=== PATIENT | female | born 1970 | race Two or more races ===

== ENCOUNTER 2016-07-22 18:16 | Day surgery (SDC) | payer MEDICAID ==
[2016-07-22] MEDS ORDERED: SODIUM CHLORIDE 0.9% FLUSH 10 ML ONE (18:39)
[2016-07-22] MEDS ORDERED: IV START KIT ONE (18:39)
--- NOTE | 2016-07-22 19:18 | HP ---
LEIGH ANN KAPLAN : 1970 CHIEF COMPLAINT: This is a 46-year-old female admitted with a history of a missed for a dilation and curettage possible suction dilation and curettage. She will be given misoprostol 400 mg overnight in preparation for the surgery. OB HISTORY: 2, para 1, 0/0/1. She had one vaginal delivery in 2003. 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 PAST MEDICAL HISTORY: 1. Positive for diabetes. She takes metformin 1000 mg twice daily. She has had diabetes for five years. 2. She has elevated cholesterol. 3. Helicobacter pylori. ALLERGIES: PENICILLIN. SOCIAL HISTORY: Nonsmoker, nondrinker. PAST SURGICAL HISTORY: Cholecystectomy. FAMILY HISTORY: Is negative. PHYSICAL EXAM: GENERAL: This is a healthy female in no acute distress. HEENT: Normal. NECK: Supple. Thyroid not palpable. BREASTS: Soft, no masses. HEART: Regular sinus rhythm, no murmurs. LUNGS: Clear. ABDOMEN: Benign. PELVIC: External genitalia healthy. Vagina, slight brown discharge. Cervix is closed and patulous. Uterus is 12 week size and anteverted. The adnexa are negative. IMAGING: She underwent an ultrasound at [facility] and at that time imaging showed an intrauterine in a transverse position. Placenta location anterior. Amniotic fluid volume normal and the crown-rump length was smaller than the expected due to dating and there was absent cardiac activity noted with a missed identified. The fetus was measuring 11 weeks gestation. ASSESSMENT: Missed . PLAN: Misoprostol insertion overnight and then dilation and curettage, possible suction dilation and curettage. Risks, reasons, complications, living will and alternatives discussed. All in [place] and all questions were answered.
[2016-07-22] MEDS ORDERED: ACETAMINOPHEN 325 MG TABLET PO PRN (20:23)
[2016-07-22] MEDS ORDERED: BLISTEX LIPSTICK 1 EACH TP PRN (20:23)
[2016-07-22] MEDS ORDERED: MENTHOL/CETYLPYRD 1 EACH LOZENGE PO PRN (20:23)
[2016-07-22] MEDS ORDERED: CEFAZOLIN SODIUM 2 GRAM DUPLEX 2 G in Premix (D5W) 50 ml 1 EACH IV PRN (20:27)
[2016-07-22] MEDS ORDERED: MISOPROSTOL 200 MCG TABLET VG ONE (20:28)
[2016-07-22 20:46] VITALS: BMI 37.0
[2016-07-22 20:52] LABS: HEMATOCRIT 31.5 % (37.0-47.0); HEMOGLOBIN 10.9 gm/l (12.0-16.0); MEAN CELL VOLUME 81.6 fl (81.0-99.0); MEAN CORPUSCULAR HEMOGLOBIN 28.2 pg (27.0-31.0); MEAN CORPUSCULAR HGB CONC 34.6 g/dl (33.0-37.0); RED CELL DISTRIBUTION WIDTH 13.2 % (11.5-14.5)
[2016-07-22] MEDS ORDERED: PUMP TUBING ONE (21:02)
[2016-07-22] MEDS: LACTATED RINGERS 1,000 ML IV SCH (21:06)
[2016-07-22 21:14] LABS: ALB/GLOB RATIO 1.2 (>1.0); ALBUMIN 3.5 gm/dL (3.5-5.7); CALCIUM 8.7 mg/dL (8.6-10.3)
[2016-07-23] MEDS ORDERED: CODEINE/APAP 30/300 MG 1 EACH TABLET PO PRN ×2 (00:44→01:00)
[2016-07-23] MEDS: LACTATED RINGERS 1,000 ML IV SCH (05:22)
[2016-07-23] MEDS ORDERED: FENTANYL 100 MCG/2 ML VIAL ONE (08:34)
[2016-07-23] MEDS ORDERED: MIDAZOLAM HCL 1 MG/ML 2ML VIAL ONE (08:34)
[2016-07-23] MEDS ORDERED: LACTATED RINGERS 1,000 ML ONE (08:36)
[2016-07-23] MEDS ORDERED: DEXAMETHASONE SOD PHOS 4 MG/1 ML VIAL ONE (09:05)
[2016-07-23] MEDS ORDERED: PROPOFOL 20 ML IV ONE (09:05)
[2016-07-23] MEDS ORDERED: ONDANSETRON 4 MG/2ML 2 ML VIAL ONE (09:05)
[2016-07-23] MEDS ORDERED: DIPHENHYDRAMINE HCL 50 MG/1 ML VIAL ONE (09:05)
[2016-07-23] MEDS ORDERED: LIDOCAINE 2% (PRES FREE) 5 ML VIAL ONE (09:05)
[2016-07-23] MEDS ORDERED: NALOXONE HCL 0.4 MG/ML VIAL IV PRN (09:17)
[2016-07-23] MEDS ORDERED: ATROPINE SULFATE 0.4 MG/1 ML VIAL IV PRN (09:17)
[2016-07-23] MEDS ORDERED: PROMETHAZINE HCL 25 MG/ML VIAL IM PRN (09:17)
[2016-07-23] MEDS ORDERED: FENTANYL 100 MCG/2 ML VIAL IV PRN (09:17)
[2016-07-23] MEDS ORDERED: ONDANSETRON 4 MG/2ML 2 ML VIAL IV PRN (09:17)
[2016-07-23] MEDS ORDERED: HYDROMORPHONE HCL 1 MG/ML SYRINGE IV PRN (09:17)
[2016-07-23] MEDS ORDERED: OXYTOCIN 10 UNITS/ML VIAL ONE (09:23)
[2016-07-23] MEDS ORDERED: LACTATED RINGERS 1,000 ML IV SCH (09:30)
--- NOTE | 2016-07-23 09:46 | PCMBPN ---
Brief Post Op Note: Date of Procedure: 07/23/16 Start Time: Preoperative Diagnosis: 1. missed Postoperative Diagnosis: 1. Same Procedure: dilatation and curettage Surgeon: Marino Springer Assist: Anesthesia: general, mr lagos Findings: external genitalia healthy, cystocele, cervix patulous and 1 cm dilated, sounded to 9 cm, 20 cc currettings, adnexa negative, uterus 10 weeks and anteverted Condition: stable Complications: none IV Fluids: mLs of LR Urine Output: 200 mLs Estimated Blood Loss: 30 mLs Tourniquet Time: N/A Specimens: endometrial curettings, products of conception Implants: Drains: N/A patient tolerated procedure well and was returned to recovery room in stable condition, she received 2gms of ancef prior to procedure and pitocin during procedure.
[2016-07-23] MEDS ORDERED: METHYLERGONOVINE MALEATE 0.2 MG/ML 1ML AMP ONE (10:22)
[2016-07-23] MEDS ORDERED: METHYLERGONOVINE MALEATE 0.2 MG/ML 1ML AMP IM PRN (10:31)
[2016-07-23] MEDS ORDERED: BLISTEX LIPSTICK 1 EACH TP PRN (10:31)
[2016-07-23] MEDS ORDERED: ACETAMINOPHEN 325 MG TABLET PO PRN (10:31)
[2016-07-23] MEDS ORDERED: IBUPROFEN 800 MG TABLET PO SCH (10:31)
[2016-07-23] MEDS ORDERED: MAGNESIUM HYDROXIDE/AL HYDROX 30 ML UDCUP PO PRN (10:31)
[2016-07-23] MEDS ORDERED: DOCUSATE SODIUM 100 MG CAPSULE PO PRN (10:31)
[2016-07-23] MEDS ORDERED: MAG HYDROX/AL HYDROX/SIMETH 30 ML UDCUP PO PRN (10:31)
[2016-07-23] MEDS ORDERED: OXYCODONE/ACETAMINOPHEN 5/325 MG TABLET PO PRN (10:31)
[2016-07-23] MEDS ORDERED: MENTHOL/CETYLPYRD 1 EACH LOZENGE PO PRN (10:31)
--- NOTE | 2016-07-23 12:50 | OP ---
Lacy Vasquez : 1970 NAME OF OPERATION: Dilation and curettage. PREOPERATIVE DIAGNOSIS: Missed . POSTOPERTIVE DIAGNOSIS: Missed . 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 DESCRIPTION OF PROCEDURE: Dictation begins with patient placed under general anesthesia. She was placed in the lithotomy position. The vagina was prepared with Betadine and draped in the usual manner. The bladder was then emptied of 200 mL of clear yellow urine prior to the surgery. After a timeout was performed exam under anesthesia revealed the external genitalia healthy, vagina had about 10 mL of blood clots present, the cervix was patulous 1 cm dilated, the uterus was 10 weeks size and anteverted, adnexa were negative. A duckbill speculum was inserted into the vagina gently. The anterior lip of the cervix grasped with a single prong tenaculum. The uterus was sounded to 9 cm. The cervix dilated with Hegar dilators and then curettage produced an additional 10 mL of blood clots and products of conception like curettings. Just as a note the patient did receive Misoprostol yesterday evening and around 12:30 a.m. on 07/23/2016 she passed material and then a large blood clot all of which were sent to the lab for analysis. Possibly included with the blood clot was placental material. With the cervix dilated curettage from the endometrial cavity was performed again resulting in 20 mL of endometrial curettings with products of conception like material until a gritty sensation was appreciated over the entire endometrial cavity. Uterine forceps were inserted afterwards with no additional tissue noted and at this point the single prong tenaculum was removed and the uterus messaged with three 4 x 4's in the vagina and then fundal message. Bleeding subsided substantially and at the end of the procedure there was just minimal dark red bleeding. She did receive Pitocin during the procedure and did receive 2 gm of Ancef prior to the procedure. All the vaginal instruments and sponges were removed. Sponge and instruments counts were reported as correct. Estimated blood loss of the entire procedure about 30 mL. The patient tolerated procedure well and was returned to recovery room in stable condition. FINAL DIAGNOSIS: As above. JOB: [id number]
--- NOTE | 2016-07-23 12:55 | DS ---
[facility] COURSE: A 46-year-old female who was admitted on 07/22/2016 for history of missed . She was given 400 mg of Misoprostol vaginally x1 and passed material, blood clot, and products of conception like material around 12:30 on 07/23/2016. She was then taken to the operating room in the morning on 07/23/2016 and had a dilation and curettage resulting in minimal tissue and blood clots. She was sent home in good condition and advised office visit in one weeks time. Activities were explained to the patient prior to her having anesthesia. FINAL DIAGNOSIS: As above. FINAL PATHOLOGY: Pending. DISCHARGE LABORATORY: Her glucose was 113. Her hemoglobin was 10.9, white count was normal. DISCHARGE MEDICATIONS: She was sent home on iron supplementation and Motrin. JOB: [id number]
[2016-07-23 13:48] VITALS: BP 111/66
--- NOTE | 2016-07-25 12:38 | SURGPATH ---
[facility] [address] [place] [id number] Patient Name: LEIGH ANN KAPLAN MR#: [id number] : 1970 Gender: F Specimen #: [id number] Collected: 07/23/2016 Received: 07/24/2016 Reported: 07/25/2016 Submitting Phys: ENRIKE RASMUSSEN I Copy To Phys: [facility] Clinical History / Pre-Operative Diagnosis: Missed Specimen Source / Surgical Procedure Performed: Products of conception Interpretation: PRODUCTS OF CONCEPTION: - IMMATURE CHORIONIC VILLI, DECIDUAL TISSUE, BLOOD CLOT AND HYPERSECRETORY ENDOMETRIUM WITH CHRONIC ENDOMETRITIS. Electronically Signed Out Augustina Flores M.D. Gross Description: The specimen is received in a formalin filled container labeled with the patient's name and "products of conception". An aggregate of maddox tissue admixed with hemorrhagic material is 6.5 x 6.0 x 2.0 cm. There is no grossly appreciated or placental tissue. Approximately 50% of the specimen is submitted in cassettes A-D. John Castañeda PMax Microscopic Description: Sections of the specimen show immature, variably sized chorionic villi admixed with decidual tissue, hypersecretory endometrium and blood clot. The chorionic villi are mildly fibrotic. There is no significant hydropic change or evidence of pathologic trophoblastic proliferation. Within the endometrial tissue, there are small numbers of stromal plasma cells, consistent with chronic endometritis. 1: [id number] O02.89
== END 2016-07-23 14:00 | disposition home or self-care (01) ==
LOC: SDC 18:16 → MS 18:18 → UNDOADMIN 18:18 → MS 20:24 → SDC 07-23 14:00
PROVIDERS: ATTEND Obstetrics & Gynecology
PROC: 10D17ZZ Extraction of Products of Conception, Retained, Via Natural or Artificial Opening (ICD-10-PCS; principal; 2016-07-22)
DX: O02.1 Missed abortion (principal); O24.311 Unspecified pre-existing diabetes mellitus in pregnancy, first trimester; E11.9 Type 2 diabetes mellitus without complications; Z79.84 Long term (current) use of oral hypoglycemic drugs; O99.281 Endocrine, nutritional and metabolic diseases complicating pregnancy, first trimester; E78.00 Pure hypercholesterolemia, unspecified; O26.899 Other specified pregnancy related conditions, unspecified trimester; N71.1 Chronic inflammatory disease of uterus; Z3A.11 11 weeks gestation of pregnancy
CPT/HCPCS: 59820; 85027; 80053; 82947; 36415 ×2; 93005; J1200; J3010; J1100; J2210; A9270 ×4; J2590; J2250; J2405; J7120 ×3